=== PATIENT | male | born 2000 | race Hispanic/Latino ===

== ENCOUNTER 2023-06-16 07:32 | Emergency (ER) | payer SELFPAY | END 2023-06-16 08:35 | disposition home or self-care (01) | LOC: CSHERS 07:32 | DX: R06.02 Shortness of breath (principal) | CPT/HCPCS: 71045; 93005 ==

== ENCOUNTER 2023-07-16 21:02 | Inpatient (IN) | payer OTHER, SELFPAY ==
[2023-07-16 21:51] LABS: #Eosinphils 0.1 10x3/uL (0.0-0.5); #Neutrophils 5.2 10x3/uL (1.5-8.4); %Basophils 0.2 % (0.0-2.0); %Eosinophils 0.5 % (0.0-6.0); %Lymphocytes 32.2 % (18.0-47.0); %Monocytes 10.5 % (0.0-10.0); %Neutrophils 56.3 % (40.0-75.0); Hematocrit 42.9 % (38.8-50.0); Hemoglobin 15.9 g/dL (13.5-17.5); Mean Corpuscular HGB CONC 37.1 g/dL (32.0-36.0); Mean Corpuscular Hemoglobin 33.5 pg (27.0-33.0); Mean Corpuscular Volume 90.5 fl (81.2-95.1); Mean Platelet Volume 10.5 fl (7.4-10.4); Platelet Count 239 10x3/uL (150-450); RBC Distribution Width 12.5 % (11.5-14.5); Red Blood Cell (RBC) Count 4.74 10x6/uL (4.32-5.72); White Blood Cell (WBC) Count 9.3 10x3/uL (3.5-10.5)
[2023-07-16 21:52] LABS: Bilirubin Neg (Negative); Blood, Urine Negative (Negative); Clarity Clear (Clear); Glucose, Urine (Dipstick) Normal (Negative); Ketone, Urine Negative (Negative); Leukocyte Negative (Negative); Nitrite Negative (Negative); Protein, Urine (Dipstick) 30 mg/dl (Neg-Trace); Specific Gravity, Urine 1.015 (1.005-1.030); pH, Urine 6.5 (5.0-9.0)
[2023-07-16 21:59] LABS: Amphetamine Not Detected (NotDetected); Barbiturates Screen Not Detected (NotDetected); Benzodiazepine Screen Not Detected (NotDetected); Cocaine Metabolite Screen Detected (NotDetected); Methadone Not Detected (NotDetected); Methamphetamine Not Detected (NotDetected); Opiate Screen Not Detected (NotDetected); Oxycodone Screen Not Detected (NotDetected); Phencyclidine (PCP) Not Detected (NotDetected); THC/Cannabinoid Screen Not Detected (NotDetected); Tricyclic Screen Not Detected (NotDetected)
[2023-07-16 22:03] LABS: Bacteria/HPF 1+ HPF (None Seen); CAUTI Indications for Culture Pelvic or flank pain; Mucous/LPF 1+ LPF (<2+); RBC/HPF 0-3 HPF (0-3); Squamous Epithelial 0-3 HPF (0-3); WBC/HPF 0-3 HPF (0-3)
[2023-07-16 22:04] LABS: Urine Culture Reflex No No
[2023-07-16 22:07] LABS: Acetaminophen Less than 10 mcg/mL (10.0-30.0); Alcohol Less than 10.0 mg/dL (Less than 10); Salicylate Less than 8.0 mg/dL (15.0-30.0)
[2023-07-16 22:08] LABS: ALT (SGPT) 40 U/L (8-55); AST (SGOT) 55 U/L (5-34); Albumin 4.6 g/dL (3.5-5.0); Alkaline Phosphatase 73 U/L (40-110); Anion Gap 15 mmol/L (10-20); BUN (Urea Nitrogen) 17 mg/dL (8.9-20.6); Bilirubin, Total 1.6 mg/dL (0.2-1.2); Calc. Creatinine Clearance 0 mL/min (70-130); Calcium 9.1 mg/dL (7.8-10.44); Carbon Dioxide 24 mmol/L (22-29); Chloride 105 mmol/L (98-107); Estimated GFR 118; Glucose 114 mg/dL (70-105); Potassium 3.5 mmol/L (3.5-5.1); Protein, Total 7.6 g/dL (6.0-8.3); Sodium 140 mmol/L (136-145)
[2023-07-16] MEDS ORDERED: Ondansetron PF 4 MG/2 ML Vial IVP PRN (23:11)
[2023-07-16] MEDS ORDERED: Lactated Ringer's 500 ML IV SCH (23:15)
[2023-07-16] MEDS ORDERED: levETIRAcetam in NS 1,000 MG in Premix 1 BAG IVPB SCH (23:15)
[2023-07-16] MEDS ORDERED: levETIRAcetam 500 MG (5 mL) VIAL SLOW IVP SCH (23:30)
[2023-07-16] MEDS ORDERED: Thiamine HCl 200 MG/2 ML VIAL SLOW IVP SCH (23:30)
[2023-07-16 23:37] LABS: CK (CPK) 1506 U/L (30-200); Magnesium 1.9 mg/dL (1.6-2.6); Phosphorus 3.4 mg/dL (2.3-4.7)
[2023-07-16] MEDS ORDERED: levETIRAcetam 500 MG (5 mL) VIAL ONE (23:53)
[2023-07-16] MEDS ORDERED: Thiamine HCl 200 MG/2 ML VIAL ONE (23:53)
[2023-07-17] MEDS ORDERED: Lorazepam 2 MG/ML VIAL SLOW IVP PRN (00:48)
[2023-07-17] MEDS ORDERED: levETIRAcetam in NS 500 MG in Premix 1 BAG IVPB SCH (01:00)
[2023-07-17] MEDS ORDERED: levETIRAcetam 500 MG (5 mL) VIAL ONE ×2 (01:00→08:11)
[2023-07-17] MEDS ORDERED: Magnesium Sulfate/D5W 1 GM/100 ML BAG IVPB SCH (01:00)
[2023-07-17] MEDS ORDERED: levETIRAcetam 500 MG (5 mL) VIAL SLOW IVP SCH (01:00)
[2023-07-17] MEDS ORDERED: Lactated Ringer's 1,000 ML IV SCH (01:00)
[2023-07-17] MEDS ORDERED: Magnesium Sulfate/D5W 1 GM/100 ML BAG ONE (01:11)
[2023-07-17] MEDS: Dextrose 5%-Lactated Ringers 1,000 ML IV SCH ×4 (02:00→22:47)
[2023-07-17 04:45] LABS: #Neutrophils 10.1 10x3/uL (1.5-8.4); %Basophils 0.1 % (0.0-2.0); %Lymphocytes 7.2 % (18.0-47.0); %Monocytes 8.1 % (0.0-10.0); %Neutrophils 84.1 % (40.0-75.0); Hematocrit 41.2 % (38.8-50.0); Hemoglobin 14.7 g/dL (13.5-17.5); Mean Corpuscular HGB CONC 35.7 g/dL (32.0-36.0); Mean Corpuscular Hemoglobin 33.5 pg (27.0-33.0); Mean Corpuscular Volume 93.8 fl (81.2-95.1); Mean Platelet Volume 10.3 fl (7.4-10.4); Platelet Count 207 10x3/uL (150-450); RBC Distribution Width 12.9 % (11.5-14.5); Red Blood Cell (RBC) Count 4.39 10x6/uL (4.32-5.72)
[2023-07-17 04:51] LABS: ALT (SGPT) 36 U/L (8-55); AST (SGOT) 44 U/L (5-34); Albumin 4.1 g/dL (3.5-5.0); Alkaline Phosphatase 65 U/L (40-110); Anion Gap 11 mmol/L (10-20); BUN (Urea Nitrogen) 13 mg/dL (8.9-20.6); CK (CPK) 1032 U/L (30-200); Calc. Creatinine Clearance 0 mL/min (70-130); Calcium 8.5 mg/dL (7.8-10.44); Carbon Dioxide 26 mmol/L (22-29); Chloride 105 mmol/L (98-107); Estimated GFR 124; Globulin 2.8 g/dL (2.4-3.5); Glucose 133 mg/dL (70-105); Potassium 4.7 mmol/L (3.5-5.1); Protein, Total 6.9 g/dL (6.0-8.3); Sodium 137 mmol/L (136-145)
[2023-07-17] MEDS ORDERED: Acetaminophen 325 MG TAB ONE ×2 (06:23→13:27)
[2023-07-17] MEDS: Acetaminophen 325 MG TAB PO PRN ×3 (06:27→21:01)
[2023-07-17] MEDS ORDERED: Famotidine/PF 20 mg/2ml Vial ONE (08:11)
[2023-07-17] MEDS: levETIRAcetam 500 MG (5 mL) VIAL SLOW IVP SCH ×2 (08:33→22:19)
[2023-07-17] MEDS: Famotidine/PF 20 mg/2ml Vial SLOW IVP SCH ×2 (08:33→21:04)
[2023-07-17] MEDS ORDERED: Acyclovir 400 mg Tablet PO SCH (09:00)
[2023-07-17] MEDS: Thiamine HCl 200 MG/2 ML VIAL SLOW IVP SCH (22:20)
[2023-07-18 04:52] VITALS: BMI 25.7
[2023-07-18] MEDS: Dextrose 5%-Lactated Ringers 1,000 ML IV SCH ×2 (06:38→15:10)
[2023-07-18] MEDS: Acetaminophen 325 MG TAB PO PRN ×3 (06:45→21:13)
[2023-07-18] MEDS: Famotidine/PF 20 mg/2ml Vial SLOW IVP SCH ×2 (10:17→21:57)
[2023-07-18] MEDS: levETIRAcetam 500 MG (5 mL) VIAL SLOW IVP SCH ×2 (10:21→21:57)
[2023-07-18] MEDS: Thiamine HCl 200 MG/2 ML VIAL SLOW IVP SCH (21:57)
[2023-07-18 23:15] LABS: Bilirubin Neg (Negative); Blood, Urine Negative (Negative); Clarity Clear (Clear); Glucose, Urine (Dipstick) Normal (Negative); Ketone, Urine Negative (Negative); Leukocyte Negative (Negative); Nitrite Negative (Negative); Protein, Urine (Dipstick) Negative (Neg-Trace); Specific Gravity, Urine 1.015 (1.005-1.030)
[2023-07-18 23:28] LABS: Bacteria/HPF Rare-Few HPF (None Seen); RBC/HPF None Seen HPF (0-3); Squamous Epithelial None Seen HPF (0-3); WBC/HPF None Seen HPF (0-3)
[2023-07-18 23:59] LABS: SARS-CoV-2 NAA Rapid Test Not Detected (NotDetected)
[2023-07-19] MEDS: Dextrose 5%-Lactated Ringers 1,000 ML IV SCH ×2 (00:16→07:41)
[2023-07-19] MEDS: Famotidine/PF 20 mg/2ml Vial SLOW IVP SCH (08:41)
[2023-07-19] MEDS: levETIRAcetam 500 MG (5 mL) VIAL SLOW IVP SCH (08:41)
[2023-07-19 17:07] VITALS: BP 138/83; TEMP 98.3
== END 2023-07-19 18:21 | disposition home or self-care (01) | DRG 918 ==
LOC: CSHERS 21:02 → CSHERHOLD 22:56 → OBSVTOIN 07-17 01:01 → CSHTELE 07-17 13:52
PROVIDERS: ADMIT Student in an Organized Health Care Education/Training Program; ATTEND Internal Medicine
DX: T40.5X1A Poisoning by cocaine, accidental (unintentional), initial encounter (principal); M62.82 Rhabdomyolysis; R47.01 Aphasia; G93.89 Other specified disorders of brain; R56.9 Unspecified convulsions; R40.0 Somnolence; F14.10 Cocaine abuse, uncomplicated; Z79.899 Other long term (current) drug therapy; Z98.890 Other specified postprocedural states; Z11.52 Encounter for screening for COVID-19
CPT/HCPCS: 0241U; 36415; 70450; 70544; 70553; 71045; 80053; 80306; 80307; 81001; 82550; 83735; 84100; 84146; 84443; 85025; 93005; 94760; J1953; J2405; J3411; J3475; J7120; S0028

== ENCOUNTER 2024-02-01 12:19 | Emergency (ER) | payer OTHER | END 2024-02-01 14:23 | disposition home or self-care (01) | LOC: CSHERS 12:19 | DX: G50.0 Trigeminal neuralgia (principal) | CPT/HCPCS: 70450 ==